=== PATIENT | female | born 1960 | race Caucasian/White ===

== ENCOUNTER → 2016-09-27 | Outpatient (CLI) | payer OTHER ==
[~2016-09-27] MED LIST: AMLODIPINE BESY10 MG PO; AMOXICILLIN500 M1 PO; ASPIRIN EC81 M1; CALCIUM1 TAB.CHEW; DICLOFENAC PO; E-MYCIN250 MG PO; ERYC250 MG PO; HCTZ; K-DUR20 ME1; K-DUR20 ME1 PO; LORTAB 7.51 TAB; MACROBID 100 M100 MG PO; NO MEDICATIONS; PYRIDIUM PO; SYNTHROID0.05 MG PO; TESSALON PERLE100 M1; ZANTAC150 M1; ZOFRAN ODT4 MG PO
[2016-09-27 14:53] LABS: THYROID STIMULATING HORMONE 1.66 uIU/ml (0.34-5.60)
[2016-09-27 16:35] LABS: FREE T3 3.5 pg/mL (2.5-3.9)
[2016-09-27 16:36] LABS: FREE THYROXIN (T4) 0.6 ng/dL (0.58-1.64)
== END | disposition home or self-care (01) ==
LOC: SLAB 13:34
PROVIDERS: Specialist
DX: C73 Malignant neoplasm of thyroid gland (principal); E89.0 Postprocedural hypothyroidism
CPT/HCPCS: 36415; 84439; 84443; 84481

== ENCOUNTER 2016-11-26 08:05 | Emergency (ER) | payer OTHER ==
--- NOTE | ~2016-11-26 | EKG ---
PATIENT: OBI POSADAS UNIT #: [id number] Ventricular Rate: 58 BPM Atrial Rate: 58 BPM P-R Interval: 142 ms QRS Duration: 100 ms Q-T Interval: 362 ms QTC Calculation(Bezet): 355 ms P [place]: 48 degrees Calculated R [place]: 21 degrees Calculated T [place]: 70 degrees Diagnosis Line: Sinus bradycardia Diagnosis Line: Nonspecific T wave abnormality Diagnosis Line: Abnormal ECG Diagnosis Line: Diagnosis Line: Confirmed by JESIKA DUBON MD ([id number]) on Diagnosis Line: 11/30/2016 8:21:57 AM INTERPRETING MD: JAGDISH TSE
--- NOTE | ~2016-11-26 | CT71 ---
[facility] A Service [facility] RADIOLOGY TEXT RESULTS PATIENT: OBI POSADAS LOCATION: SED : 60 UNIT #: [id number] AGE: [address]: Sina Orozco MD SEX: F ORDER DR: [id number] [place] [id number] E MR#: [id number] Acc #: [id number] NAME: OBI POSADAS : 1960 SEX: F STUDY DATE/TIME: 11/26/2016 10:06 UNIT: SED ROOM: STUDY DESCRIPTION: CT Head Wo Contrast Attending Physician: Sina Orozco M.D. Ordering Physician: Sina Orozco M.D. Primary Care Physician: Omar Dillard M.D. MEDICAL IMAGING REPORT This report is preliminary unless electronic signature is present. EXAM Head CT, no contrast, 11/26/2016. PROCEDURE Axial unenhanced head CT. This CT exam was performed with one or more of the following radiation dose reduction techniques: automatic exposure control, adjustment of mA and/or kV according to patient size, and iterative reconstruction. COMPARISON None. CLINICAL HISTORY Four-hour history of dizziness, nausea and throbbing headache. FINDINGS The skull base and calvaria are unremarkable. Brain parenchymal density is normal. There is no intracranial hemorrhage or mass. There is no hydrocephalus or extraaxial fluid collection. The extracranial soft tissues are normal. IMPRESSION Normal negative unenhanced head CT. Dictated by... Prudencio Foster M.D. THIS IS AN ELECTRONICALLY VERIFIED REPORT Prudencio Foster M.D. at 12/01/2016 5:04 PM TEV/pc TD: 11/26/2016 14:10 [facility] A Service [facility] RADIOLOGY TEXT RESULTS PATIENT: OBI POSADAS LOCATION: SED : 60 UNIT #: [id number] AGE: [address]: Sina Orozco MD SEX: F ORDER DR: JOB #: [id number] MEDICAL IMAGING REPORT Page 1 of 1
--- NOTE | ~2016-11-26 | CR63 ---
[facility] A Service [facility] RADIOLOGY TEXT RESULTS PATIENT: OBI POSADAS LOCATION: SED : 60 UNIT #: [id number] AGE: [address]: Sina Orozco MD SEX: F ORDER DR: [id number] [address] [address] [id number] E MR#: [id number] Acc #: [id number] NAME: OBI POSADAS : 1960 SEX: F STUDY DATE/TIME: 11/26/2016 10:06 UNIT: SED ROOM: STUDY DESCRIPTION: CR Chest 2 View Attending Physician: Sina Orozco M.D. Ordering Physician: Sina Orozco M.D. Primary Care Physician: Omar Dillard M.D. MEDICAL IMAGING REPORT This report is preliminary unless electronic signature is present. EXAM Two views of the chest. COMPARISON May 14, 2015 and August 14, 2014. INDICATION 56-year-old female with cough, dizziness, and nausea since this morning. FINDINGS Breast shadows are noted on the frontal view which do not persist on lateral view confirming breast shadow. There is no pleural effusion. No acute airspace disease. No evidence of a pneumothorax. Top normal heart size is stable. Multilevel spondylosis of the thoracic spine. IMPRESSION No acute radiographic abnormality of the chest. Dictated by... Aubrey Scott M.D. THIS IS AN ELECTRONICALLY VERIFIED REPORT Aubrey Scott M.D. at 11/28/2016 10:22 PM MEAGAN/cassi TD: 11/26/2016 14:17 JOB #: [id number] MEDICAL IMAGING REPORT Page 1 of 1
[~2016-11-26 08:05] MED LIST changes: -SYNTHROID0.05 MG PO
[2016-11-26] MEDS ORDERED: SYNTHROID0.05 MG PO (08:28)
[2016-11-26 09:38] LABS: BASOPHIL% 0.4 % (0-2.5); DIFF IND NO; EOSINOPHIL# 0.1 X10e3 (0-0.7); EOSINOPHIL% 1.3 % (0.0-7.0); HEMATOCRIT 39.4 % (35.0-45.0); HEMOGLOBIN 13.2 gm/dL (12.0-16.0); LYMPHOCYTE# 1.8 X10e3 (1.0-3.5); MEAN CELL VOLUME 85.9 FL (83-96); MEAN CORPUSCULAR HEMOGLOBIN 28.6 PG (28-34); MEAN CORPUSCULAR HGB CONC 33.3 g/dL (30-36); MEAN PLATELET VOLUME 9.3 FL (6.5-11.5); MONOCYTE# 0.6 X10e3 (0-1.0); MONOCYTE% 8.4 % (3.0-12.0); NEUTROPHIL# 4.6 X10e3 (1.5-7.1); NEUTROPHIL% 64.9 % (40-75); PLATELET COUNT 218 X10e3 (140-420); RED BLOOD COUNT 4.59 X10e (3.90-5.30); RED CELL DISTRIBUTION WIDTH 14.1 % (11.0-15.5); WHITE BLOOD COUNT 7.1 X10e3 (4.0-10.5)
[2016-11-26 09:44] LABS: URINE SOURCE CLEAN CATCH
[2016-11-26 09:47] LABS: MICRO INDICATED? NO; URINE APPEARANCE CLEAR; URINE BILIRUBIN NEG (NEG); URINE BLOOD NEG (NEG); URINE COLOR YELLOW; URINE GLUCOSE NEG (NORM); URINE KETONE NEG (NEG); URINE LEUKOCYTE ESTERASE NEG (NEG); URINE NITRATE NEG (NEG); URINE PH 7.5 (5-8); URINE PROTEIN NEG (NEG); URINE UROBILINOGEN 0.2 MG/DL (NORM)
[2016-11-26 09:54] LABS: POC - CKMB 1.8 ng/mL (0.0-7.9); POC - MYOGLOBIN 45.6 ng/mL (0.0-169.0); POC - TROPONIN <0.05 ng/mL (<=0.05)
[2016-11-26 10:09] LABS: ALBUMIN SERUM 4.3 g/dL (3.5-5.0); BILIRUBIN, DIRECT 0.1 mg/dL (0.0-0.2); BILIRUBIN,INDIRECT 0.3 mg/dL (0.0-0.9); BILIRUBIN,TOTAL 0.4 mg/dL (0.2-2.0); BUN/CREATININE RATIO 21.25; CALCIUM SERUM 8.4 mg/dL (8.4-10.2); CREATININE SERUM 0.8 mg/dL (0.6-1.4); GLOM FILT RATE Estimated 82.5 mL/min (>60); POTASSIUM 3.4 mmol/L (3.5-5.1)
== END 2016-11-26 11:04 | disposition home or self-care (01) ==
LOC: SED 08:05
PROVIDERS: Emergency Medicine
DX: R42 Dizziness and giddiness (principal); I10 Essential (primary) hypertension; Z91.013 Allergy to seafood; Z91.040 Latex allergy status; Z91.041 Radiographic dye allergy status; Z79.899 Other long term (current) drug therapy
CPT/HCPCS: 36415; 70450; 71020; 80048; 80076; 81003; 82553; 83874; 84484; 85025; 93005; 96361; 96374; 96375; 99284; J2405; J2550; J3360